=== PATIENT | male | born 1955 | race Caucasian/White ===

== ENCOUNTER 2021-03-11 22:26 | Emergency (ER) | payer MEDICARE, SELFPAY ==
--- NOTE | 2021-03-11 22:32 | XRR_ITS ---
PROCEDURE INFORMATION: Exam: XR Chest Exam date and time: 03/11/2021 10:32 PM Age: 66 years old Clinical indication: Cough and shortness of breath; Additional info: Cough, congestion, covid TECHNIQUE: Imaging protocol: XR of the chest. Views: 1 view. COMPARISON: No relevant prior studies available. FINDINGS: Lungs: Ill-defined peripheral opacities within the mid and lower lungs. Pleural spaces: Unremarkable. No pleural effusion. No pneumothorax. Heart/Mediastinum: Unremarkable. No cardiomegaly. Bones/joints: Unremarkable. XR/XR chest 1V portable [id number] IMPRESSION: Ill-defined peripheral opacities within the mid and lower lungs consistent with COVID pneumonia.
[2021-03-11 22:52] VITALS: BP 161/83; PULSE 117; RESP 16; TEMP 39.2; O2SAT 91
[2021-03-11] MEDS: ipratropium-albuterol 3 mL Neb INHALATION (23:42)
[2021-03-11 23:43] VITALS: PULSE 120; RESP 20; O2SAT 92
[2021-03-11 23:50] LABS: Basophils % 0.2 %; Hematocrit 40.8 % (42.0-52.0); Hemoglobin 14.2 g/dL (11.7-16.6); Lymphocytes # 1.4 10^3/uL (0.8-4.8); Lymphocytes % 32.9 %; Mean Corpuscular HGB Conc 34.8 g/dL (30.0-36.0); Mean Corpuscular Hemoglobin 30.9 pg (28.0-34.0); Mean Corpuscular Volume 88.7 fl (80-94); Mean Platelet Volume 9.9 fL (7.4-10.4); Monocytes # 0.3 10^3/uL (0.2-0.9); Monocytes % 8.2 %; Neutrophils # 2.41 10^3/uL (1.8-7.7); Neutrophils % 58.2 %; Nucleated Red Blood Cells % 0 %; Platelet Count 114 10^3/cmm (130-400); Red Cell Distribution Width 13.2 % (12.1-15.1); White Blood Count 4.1 10^3/uL (4.0-10.0)
[2021-03-12] MEDS: dexamethasone 10 mg/mL INJ IVP (00:10)
[2021-03-12] MEDS: acetaminophen 325 mg Tablet 650 MG PO (00:10)
[2021-03-12 00:17] LABS: Alanine Aminotransferase 51 U/L (0-41); Albumin Level 3.8 g/dL (3.5-5.2); Alkaline Phosphatase 52 IU/L (40-130); Anion Gap 18.3 (5-19); Aspartate Amino Transferase 58 U/L (0-40); Blood Urea Nitrogen 15 mg/dL (8-23); C Reactive Protein 59.4 mg/L (0.0-4.9); Calcium 8.2 mg/dL (8.5-10.5); Carbon Dioxide 19 mmol/L (22-29); Chloride 97 mmol/L (98-107); Globulin 2.7 g/dL (1.3-4.6); Glomerular Filtration Rate 96.4 mL/min (90-130); Glucose 96 mg/dL (65-115); NT Pro B Type Natriuretic Pept 138 pg/mL (0-125); Osmolality Calculated 271 mOsm/kg (285-295); Potassium 4.3 mmol/L (3.5-5.1); Sodium 130 mmol/L (136-145); Total Bilirubin 0.4 mg/dL (0.15-1.2); Total Protein 6.5 g/dL (6.6-8.7)
[2021-03-12 00:43] VITALS: BP 131/65; PULSE 112; RESP 18; O2SAT 93
[2021-03-12 00:44] VITALS: O2SAT 88
--- NOTE | 2021-03-12 00:54 | ED_ITS ---
HPI - COVID General: Chief Complaint: COVID symptoms Stated Complaint: civid symptoms Time Seen by Provider: 03/11/21 23:07 Source: patient Mode of arrival: ambulatory Limitations: no limitations Triage information: Has fever, cough or shortness of breath . No known COVID + exposure last 14 days History of Present Illness: HPI Narrative: 66-year-old male who presents here with cough fever body aches. States the symptoms been going on roughly 6 days has been having some increasing shortness of breath today had a temperature 102.6. Patient is here with his has had similar symptoms and they are both concerned that they have COVID. He has had no vomiting no diarrhea denies any chest pain denies any worsening improving factors. COVID 19 common symptoms: positive fever(s), chills, non-productive cough, dyspnea and body aches; negative headache(s), throat pain, nausea, vomiting or diarrhea COVID 19 other sytmptoms: negative chest pain COVID Results: SARS-CoV-2 Antigen (Rapid) Positive (Negative) H 03/12/21 00:48 03/12/21 Review of Systems Const: Reports: fever(s), chills and body aches Eyes: Denies: blurry vision or eye discomfort ENMT: Denies: throat pain or dental pain Card: Denies: chest pain Resp: Reports: dyspnea and non-productive cough GI: Denies: abdominal pain, nausea, vomiting or diarrhea : Denies: dysuria Musc: Denies: neck pain or back pain Skin/Breast: Denies: rash Neuro: Denies: headache(s) Psych: Denies: depression Tyron/Lymph: Denies: easy bruising All/Imm: Denies: urticaria PFSH ED PFSH: Family History (Updated 03/12/21 @ 00:55 by Anaya Whelan MD) Denies family history of CAD (coronary artery disease) Social History (Updated 03/12/21 @ 00:55 by Anaya Whelan MD) Substance/Drug Use: never Physical Exam Const: COMMON NORMALS: patient oriented x3 and healthy appearing HENMT: COMMON NORMALS: normocephalic and atraumatic HEAD & SCALP: normocephalic and atraumatic Eye: COMMON NORMALS: Equal, round and reactive pupils present and EOMs intact bilaterally PUPIL: Yes Equal, round and reactive pupils present Neck/C-Spine: COMMON NORMALS: full ROM and supple Chest: COMMONS NORMALS: normal inspection of the chest and normal palpation of entire chest wall Resp: COMMON NORMALS: normal respiratory effort, No retractions and No use of accessory muscles AUSCULTATION: wheezes Cardio: COMMON NORMALS: regular rate, regular rhythm and No murmurs present (Cardio) RATE: regular rate RHYTHM: regular rhythm GI: COMMON NORMALS: Normal to inspection, nondistended, normoactive bowel sounds present, Soft to palpation, non-tender and no masses PALPATION: Yes Soft to palpation Extremity: COMMON NORMALS: normal to inspection and full ROM Neuro: COMMON NORMALS: patient oriented x3, moves all extremities and no focal motor deficits Psych: COMMON NORMALS: mental status grossly normal, Normal thought process present and cooperative THOUGHT PROCESS: Normal thought process present Skin: COMMON NORMALS: no rashes or lesions noted and no wounds GENERAL SKIN EXAM: no rashes or lesions noted Course Vital Signs: Vital signs: Vital Signs Temperature 102.6 F H 03/11/21 22:52 Pulse Rate 108 H 03/12/21 01:35 Respiratory Rate 18 03/12/21 01:35 Blood Pressure 131/65 03/12/21 01:35 Pulse Oximetry 91 03/12/21 02:15 MDM - COVID MDM Narrative: Medical decision making narrative: Patient presents here with COVID-pneumonia. He feels much improved after breathing treatment was able to ambulate the halls but did drop to 88% when he ambulated on room air I spoke to him and his son at length about possible admission but he felt like he wanted to try to go home on home oxygen patient given Decadron here given albuterol inhaler as well. He is to watch his oxygen closely and return if worsening he understands agrees to plan. Lab Data: Labs: Lab Results 03/11/21 03/11/21 03/12/21 23:37 23:37 00:48 WBC 4.1 10^3/uL 10^3/ uL (4.0-10.0) RBC 4.60 10^6/uL 10^6 /uL (4.1-5.3) Hgb 14.2 g/dL g/dL (11.7-16.6) Hct 40.8 % L % (42.0-52.0) MCV 88.7 fl fl (80-94) MCH 30.9 pg pg (28.0-34.0) MCHC 34.8 g/dL g/dL (30.0-36.0) RDW 13.2 % % (12.1-15.1) Plt Count 114 10^3/cmm L 10 ^3/cmm (130-400) MPV 9.9 fL fL (7.4-10.4) Neut % (Auto) 58.2 % % Lymph % (Auto) 32.9 % % Garland % (Auto) 8.2 % % Eos % (Auto) 0.0 % % Baso % (Auto) 0.2 % % Neut # (Auto) 2.41 10^3/uL 10^3 /uL (1.8-7.7) Lymph # (Auto) 1.4 10^3/uL 10^3/ uL (0.8-4.8) [place] # (Auto) 0.3 10^3/uL 10^3/ uL (0.2-0.9) Eos # (Auto) 0.0 10^3/uL 10^3/ uL (0.0-0.8) Baso # (Auto) 0.0 10^3/uL 10^3/ uL (0.0-0.1) Nucleated RBC % (a uto) 0 % % Nucleated RBCs # 0.0 /100WBC /100W BC Sodium 130 mmol/L L mmol /L (136-145) Potassium 4.3 mmol/L mmol/L (3.5-5.1) Chloride 97 mmol/L L mmol/ L (98-107) Carbon Dioxide 19 mmol/L L mmol/ L (22-29) Anion Gap 18.3 (5-19) BUN 15 mg/dL mg/dL (8-23) Creatinine 0.8 mg/dL mg/dL (0.7-1.2) GFR Calculation 96.4 mL/min mL/mi n (90-130) Glucose 96 mg/dL mg/dL (65-115) Calculated Osmolal ity 271 mOsm/kg L mOs m/kg (285-295) Calcium 8.2 mg/dL L mg/dL (8.5-10.5) Total Bilirubin 0.4 mg/dL mg/dL (0.15-1.2) AST 58 U/L H U/L (0-40) ALT 51 U/L H U/L (0-41) Alkaline Phosphata se 52 IU/L IU/L (40-130) C-Reactive Protein 59.4 mg/L H mg/L (0.0-4.9) NT-Pro-B Natriuret Pep 138 pg/mL H pg/mL (0-125) Total Protein 6.5 g/dL L g/dL (6.6-8.7) Albumin 3.8 g/dL g/dL (3.5-5.2) Globulin 2.7 g/dL g/dL (1.3-4.6) SARS-CoV-2 Ag (Rap id) Positive H (Negative) Imaging Data: CXR: Radiologist's impression: Ill-defined peripheral opacities within the mid and lower lungs consistent with COVID pneumonia. COVID Results: SARS-CoV-2 Antigen (Rapid) Positive (Negative) H 03/12/21 00:48 03/12/21 Discharge Plan Discharge Patient Disposition: Home Clinical Impression: COVID-19 Condition: Stable Discharge Orders: Discharge ED (Routine); Ordered 03/12/21 Ordered By: Anaya Whelan Other Ambulatory Orders: DME: Oxygen (Order) Location: None Selected Ordered By: Anaya Whelan Discharge Diet: Advance as tolerated Discharge Activity: Resume usual activity Patient Instructions: COVID-19 (Coronavirus Disease 2019) (ED) Coding Level of Care Code ED [employer] for [place] Fwd Exam Comprehensive
[2021-03-12 01:27] LABS: SARS Covid-2 Antigen Positive (Negative)
[2021-03-12 01:35] VITALS: BP 131/65; PULSE 108; RESP 18; O2SAT 93
[2021-03-12 02:15] VITALS: O2SAT 87; O2SAT 91
== END 2021-03-12 03:50 | disposition home or self-care (01) ==
PROVIDERS: Nurse Practitioner Family; Emergency Provider Emergency Medicine
DX: U07.1 COVID-19 (principal)
CPT/HCPCS: 71045; 80053; 83880; 85025; 86140; 87426; 94640; 96374; 99284; J1100; J3535

== ENCOUNTER → 2022-12-12 09:50 | Outpatient (BNVA) | payer MEDICARE, SELFPAY | PROVIDERS: PCP Family Medicine; Visit Provider Family Medicine | DX: E78.5 Hyperlipidemia, unspecified (principal); I10 Essential (primary) hypertension; R73.9 Hyperglycemia, unspecified | CPT/HCPCS: 80053; 80061; 83036; 85025 ==